=== PATIENT | female | born 1965 | race Caucasian/White ===

== ENCOUNTER 2021-07-05 15:00 | Emergency (ER) | payer OTHER ==
[~2021-07-05] VITALS: Ht 167.6 cm; Wt 158.8 kg
[2021-07-05] MEDS ORDERED: LIPITOR 20 MG T20 M1 PO (15:19)
[2021-07-05] MEDS ORDERED: LANTUS SUBQ (15:19)
[2021-07-05] MEDS ORDERED: LISINOPRIL10 MG PO (15:19)
[2021-07-05] MEDS ORDERED: TRULICITY0.75 MG/0. SUBQ (15:19)
[2021-07-05] MEDS ORDERED: CYCLOBENZAPRINE5 MG PO (18:51)
[2021-07-05 19:00] VITALS: BP 182/91
== END 2021-07-05 19:01 | disposition home or self-care (01) ==
LOC: M.ERS 15:00
DX: M79.89 Other specified soft tissue disorders (principal); M54.32 Sciatica, left side; I87.2 Venous insufficiency (chronic) (peripheral); E11.9 Type 2 diabetes mellitus without complications; E78.5 Hyperlipidemia, unspecified; E66.01 Morbid (severe) obesity due to excess calories; Z79.899 Other long term (current) drug therapy